=== PATIENT | male | born 1975 | race Caucasian/White ===

== ENCOUNTER 2016-10-16 18:22 | Emergency (ER) | payer MEDICAID, OTHER ==
[2016-10-16 18:26] VITALS: BP 143/84; PULSE 78; RESP 20; TEMP 98.1; O2SAT 98
--- NOTE | 2016-10-16 19:25 | C.PDOC ---
History Of Present Illness 41 year old patient presents to the ED complaining of bilateral ear pain and sore throat for the past 2 days. (+)congestion. He took Motrin for the pain. Patient denies fever, cough, chest pain, sOB, abdominal pain, neck pain or vomiting. Time Seen by Provider: 10/16/16 19:16 Chief Complaint (Nursing): Cough, Cold, Congestion History Per: Patient History/Exam Limitations: no limitations Onset/Duration Of Symptoms: Days (2) Current Symptoms Are (Timing): Still Present Location Of Pain: Throat Sick Contacts (Context): None Associated Symptoms: Sore Throat Ear Symptoms: Bilateral: Ear Pain Severity: Mild Pain Scale Rating Of: 3 Recent travel outside of the [place]: No Past Medical History Reviewed: Historical Data, Nursing Documentation, Vital Signs Vital Signs: Last Vital Signs Temp 98.1 F 10/16/16 18:26 Pulse 78 10/16/16 18:26 Resp 20 10/16/16 18:26 BP 143/84 10/16/16 18:26 Pulse Ox 98 10/16/16 20:47 - Medical History PMH: HTN Surgical History: Tonsillectomy Family History: States: Unknown Family Hx - Social History Hx Tobacco Use: No Hx Alcohol Use: No Hx Substance Use: No - Immunization History Hx Tetanus Toxoid Vaccination: No Hx Influenza Vaccination: No Hx Pneumococcal Vaccination: No Review Of Systems Except As Marked, All Systems Reviewed And Found Negative. Constitutional: Negative for: Fever ENT: Positive for: Ear Pain, Nose Congestion, Throat Pain Respiratory: Negative for: Cough Gastrointestinal: Negative for: Vomiting Physical Exam - Physical Exam Appears: Non-toxic, No Acute Distress Skin: Warm, Dry Head: Atraumatic, Normacephalic Eye(s): bilateral: Normal Inspection, EOMI Ear(s): Left: Normal, Right: TM Erythema Nose: Normal Oral Mucosa: Moist Tongue: No Swelling Lips: No Swelling Throat: Erythema (mild), No Exudate, No Drooling, Other (uvula midline) Neck: Normal ROM, Supple Lymphatic: Normal Exam Chest: Symmetrical Cardiovascular: Rhythm Regular Respiratory: Normal Breath Sounds, No Rales, No Rhonchi, No Wheezing Male Genital: Normal Inspection Extremity: Normal ROM ED Course And Treatment O2 Sat by Pulse Oximetry: 98 (RA) Pulse Ox Interpretation: Normal Disposition - Disposition Disposition: HOME/ ROUTINE Disposition Time: 19:24 Condition: STABLE Additional Instructions: Gargle with salt water, drink plenty of fluids and follow up with PMD in 1-2 days for reevaluation. Prescriptions: Amoxicillin 875 mg PO BID #14 tablet Mag&Al/Simet/Diphen/Lido [First Magic Mouthwash] 5 ml MM Q6 #1 kit Instructions: Pharyngitis (ED) - Clinical Impression Clinical Impression: Pharyngitis, Otitis media - PA / DIRECTOR HRIS / Resident Statement MD/DO has reviewed & agrees with the documentation as recorded. - Scribe Statement The provider has reviewed the documentation as recorded by the Scribe Angelia Bell All medical record entries made by the Scribe were at my direction and personally dictated by me. I have reviewed the chart and agree that the record accurately reflects my personal performance of the history, physical exam, medical decision making, and the department course for this patient. I have also personally directed, reviewed, and agree with the discharge instructions and disposition.
== END 2016-10-16 19:35 | disposition home or self-care (01) ==
LOC: C.ER 18:22
DX: H66.91 Otitis media, unspecified, right ear (principal); J02.9 Acute pharyngitis, unspecified